=== PATIENT | female | born 1970 | race Caucasian/White ===

== ENCOUNTER → 2017-01-01 | Outpatient (CLI) | payer OTHER | LOC: BMCIMAGING 09:08 | PROVIDERS: ATTEND Family Medicine | DX: S82.292A Other fracture of shaft of left tibia, initial encounter for closed fracture (principal); S82.52XA Displaced fracture of medial malleolus of left tibia, initial encounter for closed fracture; S82.832A Other fracture of upper and lower end of left fibula, initial encounter for closed fracture ==

== ENCOUNTER → 2017-01-04 | Outpatient (CLI) | payer OTHER | LOC: FIMAGING 17:18 | PROVIDERS: ATTEND Podiatrist Foot & Ankle Surgery | DX: S82.422A Displaced transverse fracture of shaft of left fibula, initial encounter for closed fracture (principal); S82.52XA Displaced fracture of medial malleolus of left tibia, initial encounter for closed fracture; Y93.9 Activity, unspecified ==

== ENCOUNTER → 2017-01-11 | Outpatient (CLI) | payer OTHER | LOC: BMCIMAGING 13:51 | PROVIDERS: ATTEND Podiatrist Foot & Ankle Surgery | DX: S82.302D Unspecified fracture of lower end of left tibia, subsequent encounter for closed fracture with routine healing (principal); S82.832D Other fracture of upper and lower end of left fibula, subsequent encounter for closed fracture with routine healing ==

== ENCOUNTER → 2017-02-09 | Outpatient (CLI) | payer OTHER | LOC: BMCIMAGING 10:01 | PROVIDERS: ATTEND Podiatrist Foot & Ankle Surgery | DX: S82.842D Displaced bimalleolar fracture of left lower leg, subsequent encounter for closed fracture with routine healing (principal) ==

== ENCOUNTER → 2017-03-02 | Outpatient (CLI) | payer OTHER | LOC: BMCIMAGING 09:33 | PROVIDERS: ATTEND Podiatrist Foot & Ankle Surgery | DX: S82.402D Unspecified fracture of shaft of left fibula, subsequent encounter for closed fracture with routine healing (principal); S82.52XD Displaced fracture of medial malleolus of left tibia, subsequent encounter for closed fracture with routine healing ==

== ENCOUNTER → 2017-05-03 | Outpatient (CLI) | payer OTHER | LOC: BMCIMAGING 15:02 | PROVIDERS: ATTEND Podiatrist Foot & Ankle Surgery | DX: Z09 Encounter for follow-up examination after completed treatment for conditions other than malignant neoplasm (principal); S82.52XD Displaced fracture of medial malleolus of left tibia, subsequent encounter for closed fracture with routine healing; S82.832D Other fracture of upper and lower end of left fibula, subsequent encounter for closed fracture with routine healing ==

== ENCOUNTER → 2017-07-06 | Outpatient (CLI) | payer OTHER | LOC: BMCIMAGING 10:15 | PROVIDERS: ATTEND Podiatrist Foot & Ankle Surgery | DX: S82.832D Other fracture of upper and lower end of left fibula, subsequent encounter for closed fracture with routine healing (principal); S82.52XD Displaced fracture of medial malleolus of left tibia, subsequent encounter for closed fracture with routine healing ==

== ENCOUNTER → 2017-08-18 | Outpatient (CLI) | payer OTHER | LOC: BMCIMAGING 14:15 | PROVIDERS: ATTEND Family Medicine | DX: Z12.31 Encounter for screening mammogram for malignant neoplasm of breast (principal); Z80.3 Family history of malignant neoplasm of breast ==